=== PATIENT | female | born 1940 | race Caucasian/White ===

== ENCOUNTER 2016-08-08 22:45 | Emergency (ER) | payer OTHER, MEDICARE ==
[~2016-08-08] VITALS: Ht 162.6 cm; Wt 104.3 kg
[~2016-08-08 22:45] MED LIST: COLE625 PO; CYCL-36 PO; TRAV0.00 BOTH EYES
[2016-08-08 22:52] VITALS: BP 149/68; PULSE 82; RESP 18; TEMP 97.7; O2SAT 98
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
[2016-08-09 00:45] LABS: BLOOD, URINE NEG (NEG); GLUCOSE,URINE NEG (NEG); KETONE, URINE NEG (NEG); NITRITE,URINE NEG (NEG)
[2016-08-09 00:58] VITALS: BP 153/72; PULSE 79; RESP 16; O2SAT 98
[2016-08-09] MEDS ORDERED: ORPHENADRINE INJ 60 MG/2 ML AMP IM ONE (01:00)
[2016-08-09] MEDS ORDERED: KETOROLAC TROMETHAMINE 60 MG/2 ML (IM) VIAL IM ONE (01:00)
[2016-08-09 01:01] LABS: URINE COLOR YELLOW (YELLW/STRAW)
[2016-08-09 01:02] LABS: MUCUS URINE RARE /lpf (OCC); SQUAMOUS EPITHELIAL CELL URINE 0-5 /hpf (0-5); WBC, URINE 0-2 /hpf (0-5)
[2016-08-09 01:03] LABS: COMMENT (UR) CULT NOT INDICATED; CULTURE IF INDICATED CULT NOT INDICATED
[2016-08-09] MEDS ORDERED: HYDR-3533 PO (01:13)
[2016-08-09] MEDS ORDERED: PRED10 PO (01:13)
== END 2016-08-09 02:13 | disposition home or self-care (01) ==
LOC: PHED 22:45
DX: S23.9XXA Sprain of unspecified parts of thorax, initial encounter (principal); R07.81 Pleurodynia; J45.909 Unspecified asthma, uncomplicated; I10 Essential (primary) hypertension; E11.9 Type 2 diabetes mellitus without complications; M54.9 Dorsalgia, unspecified; G89.29 Other chronic pain; E78.00 Pure hypercholesterolemia, unspecified; Z87.891 Personal history of nicotine dependence; V43.52XA Car driver injured in collision with other type car in traffic accident, initial encounter; Y93.89 Activity, other specified; Y92.410 Unspecified street and highway as the place of occurrence of the external cause; Y99.8 Other external cause status
CPT/HCPCS: 71101; 72072; 81001; 96372; 99283; J1885; J2360

== ENCOUNTER 2016-08-09 05:43 | Emergency (ER) | payer OTHER, MEDICARE ==
[~2016-08-09] VITALS: Ht 162.6 cm; Wt 104.8 kg
[~2016-08-09 05:43] MED LIST changes: +HYDR-3533 PO; +PRED10 PO
[2016-08-09 05:54] VITALS: BP 140/82; PULSE 75; RESP 18; TEMP 97.6; O2SAT 97
[2016-08-09] MEDS ORDERED: predniSONE 10 MG TAB PO ONE (06:30)
[2016-08-09] MEDS ORDERED: ACETAMINOPHEN/HYDROcodone 325 MG/7.5 MG TAB PO ONE (06:30)
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
== END 2016-08-09 06:46 | disposition home or self-care (01) ==
LOC: PHED 05:43
DX: S23.3XXA Sprain of ligaments of thoracic spine, initial encounter (principal); E11.9 Type 2 diabetes mellitus without complications; E78.00 Pure hypercholesterolemia, unspecified; V43.92XD Unspecified car occupant injured in collision with other type car in traffic accident, subsequent encounter
CPT/HCPCS: 99283; J7512